=== PATIENT | male | born 1960 | race Caucasian/White ===

== ENCOUNTER 2016-07-27 16:07 | Emergency (ER) | payer MEDICAID ==
[~2016-07-27] VITALS: Ht 167.6 cm; Wt 116.6 kg
--- NOTE | 2016-07-27 16:20 | NUR ---
AAOX3, AMBULATES TO ER BED 02 WITH STEADY GAIT C/O R TESTICULAR PAIN AND SWELLING SINCE THIS MORNING. RESP IS EVEN AND UNLABORED WITH NAD NOTED. SKIN IS WARM AND DRY. AWAITING MD FOR EVAL.
[2016-07-27 16:39] LABS: BASOPHILS # (AUTO) 0.1 /CMM (0.0-0.2); BASOPHILS % (AUTO) 0.7 % (0.0-2.0); EOSINOPHILS # (AUTO) 0.1 /CMM (0.0-0.7); EOSINOPHILS % (AUTO) 0.7 % (0.0-6.0); HEMATOCRIT 46 % (39-51); HEMOGLOBIN 15.7 g/dL (13.5-17.5); LYMPHOCYTES # (AUTO) 3.7 /CMM (0.8-4.8); LYMPHOCYTES % (AUTO) 23.5 % (20.0-44.0); MEAN CORPUSCULAR HEMOGLOBIN 31 PG (26.0-33.0); MEAN CORPUSCULAR HGB CONC 34 g/dl (31.0-36.0); MEAN CORPUSCULAR VOLUME 90 fL (80-96); MONOCYTES # (AUTO) 1.7 /CMM (0.1-1.30); MONOCYTES % (AUTO) 10.9 % (2.0-12.0); NEUTROPHILS # (AUTO) 10.1 /CMM (1.8-8.9); NEUTROPHILS % (AUTO) 64.2 % (43.0-81.0); PLATELET COUNT (AUTO) 337 /CMM (150-450); RDW COEFFICIENT OF VARIATION 13.5 (11.5-15.0); RED BLOOD CELL COUNT(AUTO) 5.14 MIL/uL (4.5-6.0); WHITE BLOOD COUNT (AUTO) 15.7 K/uL (4.3-11.0)
[2016-07-27 16:46] LABS: CALCIUM, SERUM 8.4 mg/dL (8.5-10.1); CREATININE 1.1 mg/dL (0.6-1.3); POTASSIUM 3.8 mmol/L (3.5-5.1)
[2016-07-27 17:50] VITALS: BP 111/71
--- NOTE | 2016-07-27 17:50 | NUR ---
PT. VERBALIZED UNDERSTANDING OF AFTERCARE INSTRUCTIONS.Patient discharged to home in stable condition. Written and verbal after care instructions given. Patient verbalizes understanding of instruction.
== END 2016-07-27 17:51 | disposition home or self-care (01) ==
LOC: ER 16:17
DX: N45.1 Epididymitis (principal); F17.200 Nicotine dependence, unspecified, uncomplicated
CPT/HCPCS: 36415; 76870-TC; 80048-TC; 85025-TC; A4606; Z7610

== ENCOUNTER 2021-05-10 06:32 | Emergency (ER) | payer OTHER ==
[~2021-05-10] VITALS: Ht 167.6 cm; Wt 128.8 kg
--- NOTE | 2021-05-10 07:01 | NUR ---
BIBS FROM HOME. TO ER BED 10. AAOX4. NOT IN RESP DISTRESS. AMBULATORY. CAME IN FOR A WORSENING R LOWER ABDOMINAL PAIN WHICH STARTED YESTERDAY. PT REPORTS THE THE PAIN IS AGGREVATED BY COUGHING. URINE COLLECTED AND SENT TO LAB. AWAITING MD FOR STUART
--- NOTE | 2021-05-10 07:08 | NUR ---
URINE COLLECTED AND SENT TO LAB
--- NOTE | 2021-05-10 07:08 | NUR ---
BLOOD COLLECTED AND SENT TO LAB
[2021-05-10] MEDS ORDERED: ONDANSETRON HCL/PF 4 MG/2 ML VIAL ONE (07:09)
[2021-05-10] MEDS ORDERED: MORPHINE SULFATE INJ 4 MG/ML DISP.SYRIN ONE (07:10)
[2021-05-10] MEDS ORDERED: MORPHINE SULFATE INJ 2 MG/ML DISP.SYRIN IV ONE (07:30)
[2021-05-10] MEDS ORDERED: IV NS 0.9% 1,000 ML BAG IV ONE (07:30)
[2021-05-10] MEDS ORDERED: ONDANSETRON HCL/PF 4 MG/2 ML VIAL IVP ONE (07:30)
[2021-05-10 07:45] LABS: BASOPHILS # (AUTO) 0.1 K/uL (0.0-0.2); BASOPHILS % (AUTO) 1.2 % (0.0-2.0); EOSINOPHILS % (AUTO) 2.5 % (0.0-6.0); HEMATOCRIT 49 % (39-51); HEMOGLOBIN 16.4 g/dL (13.5-17.5); LYMPHOCYTES # (AUTO) 4.4 K/uL (0.8-4.8); LYMPHOCYTES % (AUTO) 37.1 % (20.0-44.0); MEAN CORPUSCULAR HGB CONC 34 g/dl (31.0-36.0); MEAN CORPUSCULAR VOLUME 90 fL (80-96); MONOCYTES # (AUTO) 1.1 K/uL (0.1-1.30); MONOCYTES % (AUTO) 9.1 % (2.0-12.0); NEUTROPHILS % (AUTO) 50.1 % (43.0-81.0); PLATELET COUNT (AUTO) 339 K/uL (150-450); RED BLOOD CELL COUNT(AUTO) 5.39 MIL/uL (4.5-6.0); WHITE BLOOD COUNT (AUTO) 11.9 K/uL (4.3-11.0)
[2021-05-10 08:35] LABS: BILIRUBIN,URINE NEGATIVE (NEGATIVE); COLOR,URINE YELLOW (YELLOW); LEUKOCYTE ESTERASE ,URINE NEGATIVE (NEGATIVE); NITRITE, URINE NEGATIVE (NEGATIVE); PH,URINE 7.5 (5.0-8.0); PROTEIN,URINE NEGATIVE (NEGATIVE); UGLUCOSE >=1000 mg/dL (NEGATIVE); UROBILINOGEN,URINE 0.2 EU/dL (0.2)
[2021-05-10 09:16] LABS: BACTERIA,URINE None seen /HPF (None Seen); SQUAMOUS EPITHELIAL CELL,UR None Seen /HPF (None Seen); WBC,URINE 0-2 /HPF (0-3)
[2021-05-10 09:43] LABS: BILIRUBIN,DIRECT 0.1 mg/dL (0.0-0.2); BILIRUBIN,TOTAL 0.3 mg/dL (0.2-1.0)
[2021-05-10 09:44] LABS: ALBUMIN 3.8 g/dL (3.4-5.0); CALCIUM, SERUM 9.3 mg/dL (8.5-10.1); POTASSIUM 4.3 mmol/L (3.5-5.1); TOTAL PROTEIN, SERUM 8.1 g/dL (6.4-8.2)
[2021-05-10 09:45] LABS: CREATININE 0.8 mg/dL (0.6-1.3)
--- NOTE | 2021-05-10 10:27 | NUR ---
IV removed. Catheter intact and site benign. Pressure and 4x4 applied to site. No bleeding noted.Patient discharged to home in stable condition. Written and verbal after care instructions given. Patient verbalizes understanding of instruction.
[2021-05-10 10:29] VITALS: BP 128/74
[2021-05-19] MEDS ORDERED: LEVO750T46 PO (08:35)
[2021-05-19] MEDS ORDERED: IBUP-1955 PO (08:35)
== END 2021-05-10 10:29 | disposition home or self-care (01) ==
LOC: ER 06:32
DX: R10.33 Periumbilical pain (principal); R10.30 Lower abdominal pain, unspecified; F17.200 Nicotine dependence, unspecified, uncomplicated
CPT/HCPCS: 36415; 74176; 80048; 80076; 81001; 83690; 85025; 87086; 96361; 96374; 96375; 99284; J2270; J2405; J7030

== ENCOUNTER 2021-05-14 18:18 | Inpatient (IN) | payer OTHER ==
[~2021-05-14] VITALS: Ht 167.6 cm; Wt 130.6 kg
--- NOTE | 2021-05-14 18:34 | NUR ---
CALLED IN TRIAGE. NO ANSWER
--- NOTE | 2021-05-14 18:38 | NUR ---
SENT TO ER BED 11. BIBSELF C/O ABDOMINAL PAIN x 4 DAYS.
--- NOTE | 2021-05-14 19:12 | NUR ---
IV ESTABLISHED L AC 20G. LABS DRAWN AND COLLECTED. CONVERTED TO SALINE LOCK
--- NOTE | 2021-05-14 19:12 | NUR ---
URINE COLLECTED AND SENT
[2021-05-14 19:49] LABS: BASOPHILS # (AUTO) 0.1 K/uL (0.0-0.2); EOSINOPHILS % (AUTO) 1.7 % (0.0-6.0); HEMATOCRIT 45 % (39-51); HEMOGLOBIN 15.4 g/dL (13.5-17.5); LYMPHOCYTES # (AUTO) 4.5 K/uL (0.8-4.8); LYMPHOCYTES % (AUTO) 38.5 % (20.0-44.0); MEAN CORPUSCULAR HGB CONC 34 g/dl (31.0-36.0); MEAN CORPUSCULAR VOLUME 91 fL (80-96); MONOCYTES # (AUTO) 1.1 K/uL (0.1-1.30); MONOCYTES % (AUTO) 9.1 % (2.0-12.0); NEUTROPHILS # (AUTO) 5.8 K/uL (1.8-8.9); NEUTROPHILS % (AUTO) 49.7 % (43.0-81.0); PLATELET COUNT (AUTO) 306 K/uL (150-450); RED BLOOD CELL COUNT(AUTO) 4.96 MIL/uL (4.5-6.0); WHITE BLOOD COUNT (AUTO) 11.7 K/uL (4.3-11.0)
[2021-05-14 19:50] LABS: CALCIUM, SERUM 8.6 mg/dL (8.5-10.1); CREATININE 0.9 mg/dL (0.6-1.3)
[2021-05-14 20:03] LABS: BILIRUBIN,URINE NEGATIVE (NEGATIVE); COLOR,URINE YELLOW (YELLOW); LEUKOCYTE ESTERASE ,URINE NEGATIVE (NEGATIVE); NITRITE, URINE NEGATIVE (NEGATIVE); PROTEIN,URINE NEGATIVE (NEGATIVE); UGLUCOSE >=1000 mg/dL (NEGATIVE); UROBILINOGEN,URINE 0.2 EU/dL (0.2)
[2021-05-14 20:06] LABS: ALBUMIN 3.5 g/dL (3.4-5.0); BILIRUBIN,DIRECT 0.1 mg/dL (0.0-0.2); BILIRUBIN,TOTAL 0.3 mg/dL (0.2-1.0); TOTAL PROTEIN, SERUM 7.6 g/dL (6.4-8.2)
[2021-05-14 20:11] LABS: BACTERIA,URINE None seen /HPF (None Seen); SQUAMOUS EPITHELIAL CELL,UR Few /HPF (None Seen); WBC,URINE 0-2 /HPF (0-3)
[2021-05-14] MEDS ORDERED: IOHEXOL-300 100 ML VIAL IV ONE (20:24)
[2021-05-14] MEDS ORDERED: IV NS 0.9% 250 ML IV ONE (20:25)
[2021-05-14] MEDS ORDERED: MORPHINE SULFATE INJ 2 MG/ML DISP.SYRIN IV ONE (20:30)
[2021-05-14] MEDS ORDERED: ONDANSETRON HCL/PF 4 MG/2 ML VIAL IVP ONE (20:30)
[2021-05-14] MEDS: IV NS 0.9% 500 ML BAG IV ONE ×2 (20:49→21:09)
[2021-05-14] MEDS: PIPERACILLIN /TAZOBACTAM 3.375 G in IV D5W 50 ML IV ONE ×2 (20:49→21:09)
[2021-05-14] MEDS ORDERED: PIPERACILLIN /TAZOBACTAM 3.375 G VIAL IV ONE (20:59)
--- NOTE | 2021-05-14 22:11 | NUR ---
COVID TO LAB
[2021-05-14] MEDS ORDERED: ONDANSETRON HCL/PF 4 MG/2 ML VIAL IVP PRN (23:00)
[2021-05-14] MEDS ORDERED: MORPHINE SULFATE INJ 2 MG/ML DISP.SYRIN IV PRN (23:00)
[2021-05-15] MEDS: ENOXAPARIN SODIUM 40 MG/0.4 ML DISP.SYRIN SQ SCH ×2 (01:10→21:34)
--- NOTE | 2021-05-15 01:47 | NUR ---
PATIENT TRANSFERRED, NO ACUTE DISTRESS NOTED.
--- NOTE | 2021-05-15 01:50 | NUR ---
RN NOTES: -PATIENT ADMITTED FROM ER, CAME IN BY HIMSELF FROM HOME WITH C/O ACUTE ABDOMINAL PAIN X 4-5 DAYS, CT ABDOMEN WITH PELVIS RESULT: FATTY STRANDING BILATERAL STRANGULATED INGUINAL HERNIA, PATIENT DENIES ANY MEDICAL AND PAST SURGICAL HISTORY, HE DOES NOT TAKE ANY MAINTENANCE DRUGS, HE IS A SMOKE 1/2 PACK A DAY OR MORE(FOR 30 YEARS),HE LOOKS OBESE, IV CANNULA LAC G#20, LACTIC ACID 3.1 THEN DOWN 1.9 HE RECIEVED IVF OF NS IN ER, FOLLOWED WITH ZOSYN 3.375 IV/ATB AND OMEPRAZOLE, HE REFUSED MORPHINE AND ONDANSETRON, HE WAS REFERRED INITIALLY TO DR. VALLES IN ER, HE SAID NO NEED SURGERY. -- WHILE PATIENT WAS ADMITTED IN [address] CHARGE NURSE RECEIVED A PHONE CALL FROM FOR SURGERY TOMORROW AT 11OO AM : REPAIR OF INCARCERATED UMBILICAL HERNIA. --ARRIVED AT [facility] AT 0145, ACCOMPANIED BY 1 ER STAFF, AMBULATORY ABLE TO TRANSFER FROM [facility] TO BED WITHOUT ANY DIFFICULTY, STILL WITH ON AND OFF PAIN, ORIENTED TO UNIT AND STAFF, BODY ASSESSMENT DONE, SKIN IS INTACT, NO EDEMA, NO SKIN ISSUES, NO OLD SURGICAL SCAR.NON LABORED BREATHING, SPO2-96% ON ROOM AIR, NO SOB OR ANY SIGN OF RESPIRATORY DISTRESS, NO NAUSEA AND VOMITING NOTED,ABDOMEN IS ENLARGE. -FALL, SAFETY AND ASPIRATION PRECAUTION OBSERVED,NPO. -CHARGE NURSE ADDED LAB TEST ORDER BY DR. VALLES. -TO OBTAIN CONSENT. Addendum: 05/15/21 at 2880 by ANDREW FISCHER RN CORRECTION TO PREVIOUS CHARTING: PATIENT DID NOT RECEIVED ONDANSETRON IN ER, HE REFUSED. Addendum: 05/15/21 at 0441 by ANDREW FISCHER RN ADDED NOTES: NO OMEPRAZOLE GIVEN IN ER, WRONG ENTRY OF CHARTING.
[2021-05-15 02:00] VITALS: BP 128/57
--- NOTE | 2021-05-15 02:25 | NUR ---
RN NOTES; -- PATIENT IS SCHEDULE FOR SURGERY REPAIR OF INCARCERATED HERNIA TOMORROW AT 11AM BY DR. VALLES,VERIFIED WITH DR. ALEJANDRA CHANEY, LOVENOX DOSE WITH BE HOLD FOR TONIGHT DOSE.
[2021-05-15] MEDS: IV NS 0.9% 1,000 ML IV PRN ×2 (03:17→20:03)
--- NOTE | 2021-05-15 03:17 | NUR ---
RN NOTES: UNABLE TO SCAN IV FLUID, MANUALLY ENTERED. --IVF OF NS AT 100CC/HR STARTED FOR IV HYDRATION KEPT NPO.
--- NOTE | 2021-05-15 03:52 | NUR ---
RN NOTES: -PATIENT PREFER TO SIGN CONSENT IN THE MORNING HE DONT WANT TO BE DISTURBED ANYMORE HE WANTS TO SLEEP AND REST.
[2021-05-15] MEDS ORDERED: PIPERACILLIN /TAZOBACTAM 3.375 G in IV D5W 50 ML IV SCH ×4 (05:00)
[2021-05-15] MEDS ORDERED: PIPERACILLIN /TAZOBACTAM 3.375 G VIAL IV ONE (05:36)
--- NOTE | 2021-05-15 05:42 | NUR ---
RN NOTES: 0530AM DOSE OF ZOSYN 3.375 G TAKEN BY CHARGE NURSE IN [facility]MNICEL.
--- NOTE | 2021-05-15 06:04 | NUR ---
RN NOTES: 5445 RN WAS ABOUT TO GIVE ZOSYN HE WANTS TO WALK AROUND AND HE ASKED PERMISSION TO GO DOWN TO GET SOMETHING FROM HIS CAR, ASKED PERMISSION FROM CHARGE NURSE, WENT DOWN TO CAR PARK, ACCOMPANIED BY IVAN.
[2021-05-15 06:38] LABS: BASOPHILS # (AUTO) 0.1 K/uL (0.0-0.2); BASOPHILS % (AUTO) 0.8 % (0.0-2.0); EOSINOPHILS % (AUTO) 1.7 % (0.0-6.0); HEMATOCRIT 47 % (39-51); HEMOGLOBIN 15.9 g/dL (13.5-17.5); LYMPHOCYTES # (AUTO) 3.8 K/uL (0.8-4.8); LYMPHOCYTES % (AUTO) 35.5 % (20.0-44.0); MEAN CORPUSCULAR HGB CONC 34 g/dl (31.0-36.0); MEAN CORPUSCULAR VOLUME 91 fL (80-96); MONOCYTES # (AUTO) 0.8 K/uL (0.1-1.30); MONOCYTES % (AUTO) 7.6 % (2.0-12.0); NEUTROPHILS # (AUTO) 5.9 K/uL (1.8-8.9); NEUTROPHILS % (AUTO) 54.4 % (43.0-81.0); PLATELET COUNT (AUTO) 299 K/uL (150-450); RED BLOOD CELL COUNT(AUTO) 5.16 MIL/uL (4.5-6.0); WHITE BLOOD COUNT (AUTO) 10.8 K/uL (4.3-11.0)
--- NOTE | 2021-05-15 06:43 | NUR ---
RN NOTES: -RECEIVED CALL FROM PHARMACY, SPOKE WITH RHODA,SUGGEST TO PUT ANOTHER LINE WHEN GIVING NEXT DOSE OF ZOSYN.WILL ENDORSED TO NEXT SHIFT TO PUT A NEW LINE FOR NEXT DOSE. -PATIENT IS AWARE REGARDING HIS PROCEDURE THIS MORNING AT 1100, ON NPO, SCHEDULE FOR REPAIR INCARCERATED UMBILICAL HERNIA, CONSENT: FOR PROCEDURE, ANESTHESIA AND BLOOD TRANSFUSION TAKEN, EXPLAINED TO HIM REGARDING COVID PROTOCOL, HE UNDERSTAND AND HE SIGNED.
[2021-05-15 07:03] LABS: THYROID STIMULATING HORMONE 1.92 uIU/mL (0.358-3.74)
--- NOTE | 2021-05-15 07:16 | NUR ---
RN NOTES: TAKING A SHORT NAP IN BETWEEN, ENDORSED TO NEXT SHIFT HE WANTS HIS TO BE AROUND ON HIS OPERATION TIME, STABLE, NO PAIN OR DISCOMFORT, ENDORSED FOR CONTINUITY OF CARE.
--- NOTE | 2021-05-15 07:45 | NUR ---
RN NOTES CONSENT FORMS SIGNED AND IN THE CHART.
[2021-05-15 08:01] LABS: CALCIUM, SERUM 8.6 mg/dL (8.5-10.1); CREATININE 0.8 mg/dL (0.6-1.3); MAGNESIUM 2.2 mg/dL (1.8-2.4); PHOSPHORUS 3.4 mg/dL (2.5-4.9); POTASSIUM 4.1 mmol/L (3.5-5.1)
[2021-05-15] MEDS: PANTOPRAZOLE 40 MG VIAL IV SCH (08:10)
[2021-05-15 08:36] VITALS: BP 121/49
[2021-05-15] MEDS ORDERED: DEXTROSE 50%-WATER 50 ML DISP.SYRIN IV PRN (09:00)
[2021-05-15] MEDS: PIPERACILLIN /TAZOBACTAM 3.375 G in IV D5W 100 ML IV SCH ×2 (11:31→20:02)
--- NOTE | 2021-05-15 11:56 | NUR ---
RN NOTES AT BEDSIDE TO SEE PATIENT. CONFIRMED W/ OR THAT PATIENT IS SCHEDULED TO HAVE SURGERY TODAY AT 1200.
[2021-05-15] MEDS: BLOOD SUGAR DIAGNOSTIC 1 EACH STRIP VI SCH ×3 (12:00→21:40)
--- NOTE | 2021-05-15 12:12 | NUR ---
RN NOTES PATIENT SEEN BY DR. VALLES. PICKED UP VIA [facility] FOR SURGERY, ACCOMPANIED BY 2 OR NURSES.
--- NOTE | 2021-05-15 12:39 | NUR ---
RN NOTES PATIENT BROUGHT BACK TO UNIT BY OR NURSE D/T ANESTHESIOLOGIST SCHEDULE CONFLICT; WILL COIL ASSEMBLER PATIENT AGAIN WHEN READY.
--- NOTE | 2021-05-15 14:10 | NUR ---
RN NOTES PATIENT PICKED UP FOR SURGERY VIA GURNEY, ACCOMPANIED BY 2 OR NURSES.
[2021-05-15] MEDS ORDERED: BUPIVACAINE 0.5 % PF 150 MG/30 ML VIAL ONE (14:32)
[2021-05-15] MEDS ORDERED: LIDOCAINE MPF 1%-EPI 1:200,000 30 ML VIAL IJ ONE (14:32)
[2021-05-15] MEDS ORDERED: FENTANYL PF 250MCG/5ML AMPUL ONE (14:40)
[2021-05-15] MEDS ORDERED: HYDROMORPHONE INJ 2 MG/ML DISP.SYRIN ONE (14:40)
[2021-05-15] MEDS ORDERED: ROCURONIUM BROMIDE 50 MG/5 ML ONE (14:41)
[2021-05-15] MEDS ORDERED: MIDAZOLAM HCL 2 MG/2ML VIAL ONE (14:41)
[2021-05-15] MEDS ORDERED: FAMOTIDINE/PF INJ 20 MG/2 ML VIAL IV ONE (14:41)
[2021-05-15] MEDS ORDERED: ANESTHESIA TRAY IN PYXIS 1 EA TRAY MC ONE (14:45)
[2021-05-15] MEDS ORDERED: BACITRACIN ZINC OINT PACKET 1 EA PACKET TP ONE (15:55)
--- NOTE | 2021-05-15 16:15 | NUR ---
RN NOTES , KARIS, AT SURGERY WAITING AREA. SPOKE W/ SATISH FROM SURGERY, WILL SEND DR. VALLES TO SEE .
[2021-05-15] MEDS ORDERED: ALBUTEROL FS 2.5 MG/3 ML VIAL.NEB ONE ×2 (16:19→16:59)
[2021-05-15] MEDS ORDERED: FUROSEMIDE 20 MG/2 ML VIAL ONE (16:41)
[2021-05-15] MEDS ORDERED: DEXAMETHASONE SOD PHOSPHATE 4 MG/ML VIAL ONE (17:03)
[2021-05-15] MEDS: ACETAMINOPHEN 325 MG TABLET PO SCH (18:00)
[2021-05-15] MEDS: GABAPENTIN 300 MG CAPSULE PO SCH (18:00)
[2021-05-15] MEDS: IBUPROFEN 400 MG TABLET PO SCH (18:00)
--- NOTE | 2021-05-15 18:31 | NUR ---
RN NOTES PATIENT UNABLE TO SWALLOW MEDS AT THIS TIME; STATUS POST RECOVERY FROM SURGERY.
--- NOTE | 2021-05-15 18:59 | NUR ---
RN NOTES PATIENT RESPONDS TO VERBAL AND TACTILE STIMULI. OPENS EYES. VERBALIZED THAT HE IS SLEEPY AT THIS TIME. CURRENTLY ON TELE FOR OBSERVATION, READING OF SINUS TACH, HR IN THE LOW 100'S, NO CARDIAC DISTRESS. SAFETY MEASURES MAINTAINED. WILL ENDORSE TO SUPERVISOR HAND SILVERING RN FOR TABITHA.
--- NOTE | 2021-05-15 19:30 | NUR ---
RN OPENING NOTE PATIENT IN BED, A/O X 3 AT THIS TIME. PATIENT OBSERVED TO BE REALLY SLEEPY. AWAKENS WITH VERBAL AND TOUCH STIMULI. PATIENT S/P HERNIA SX WITH DR. VALLES THIS AFTERNOON. NO REPORTS OF PAIN AT THIS TIME. PATIENT ON 5LPM, TOLERATING WELL VIA NC. WILL WEAN PATIENT DOWN HE TOLERATES IT. SAFETY MEASURES IN PLACE: BED LOCKED AND IN LOWEST POSITION, CALL LIGHT WITHIN REACH, SIDE RAILS UP. WILL MONITOR PATIENT CLOSELY. Addendum: 05/15/21 at 2225 by LISA MALCOLM RN PATIENT ON TELE FOR OBSERVATION, ST 105 BPM
[2021-05-15 20:00] VITALS: BP 129/72
[2021-05-15 21:17] VITALS: BP 126/77
[2021-05-15] MEDS: *INSULIN REGULAR(HUMULIN R)HUM 100 UNIT/ML VIAL SQ PRN (21:46)
--- NOTE | 2021-05-15 22:00 | NUR ---
BS 256 6 UNITS GIVEN FOR COVERAGE. SNACK PROVIDED. WILL MONITOR PATIENT FOR HYPO/HYPERGLYCEMIA
[2021-05-16] MEDS: PIPERACILLIN /TAZOBACTAM 3.375 G in IV D5W 100 ML IV SCH ×3 (04:30→20:22)
[2021-05-16] MEDS: ACETAMINOPHEN 325 MG TABLET PO SCH ×3 (04:30→21:52)
[2021-05-16] MEDS: GABAPENTIN 300 MG CAPSULE PO SCH ×3 (04:30→21:52)
[2021-05-16] MEDS: IBUPROFEN 400 MG TABLET PO SCH ×3 (04:30→21:52)
[2021-05-16] MEDS: INSULIN REGULAR, HUMAN 100 UNIT/ML 3 ML VIAL SQ PRN ×3 (06:23→16:48)
[2021-05-16] MEDS: BLOOD SUGAR DIAGNOSTIC 1 EACH STRIP VI SCH ×4 (06:31→22:08)
--- NOTE | 2021-05-16 06:48 | NUR ---
RN CLOSING NOTE PATIENT AWAKE, A/O X 4. PATIENT COMPLAINS OF L GROIN SHARP AND ACHING PAIN RADIATING UP THE BODY, MORPHINE 4 MG GIVEN FOR 10/10 PAIN. TELE MONITOR ON 87 BPM SR, FOR OBSERVATION S/P HERNIA REPAIR. 5LPM VIA NC ON, SATURATING 97 BPM. PATIENT OBSERVED TO HAVE COUGH, NON PRODUCTIVE. NO DYSNEA REPORTED BY PATIENT. DRESSING PLACED ON TOP OF ABD SX SITE. SAFETY MEASURES IN PLACE: BED LOCKED AND IN LOWEST POSITION, CALL LIGHT WITHIN REACH, SIDE RAILS UP. ALL NEEDS MET AND ATTENDED. ALL ORDERS CARRIED OUT. WILL ENDORSE TO DAY SHIFT NURSE FOR TABITHA. Addendum: 05/16/21 at 0652 by LISA MALCOLM RN BS 351 15 UNITS GIVEN FOR COVERAGE
[2021-05-16 07:25] LABS: HEMATOCRIT 43 % (39-51); HEMOGLOBIN 14.4 g/dL (13.5-17.5); LYMPHOCYTES # (AUTO) 1.1 K/uL (0.8-4.8); MEAN CORPUSCULAR HGB CONC 33 g/dl (31.0-36.0); MEAN CORPUSCULAR VOLUME 91 fL (80-96); MONOCYTES # (AUTO) 0.9 K/uL (0.1-1.30); MONOCYTES % (AUTO) 2.4 % (2.0-12.0); NEUTROPHILS # (AUTO) 34.7 K/uL (1.8-8.9); NEUTROPHILS % (AUTO) 94.6 % (43.0-81.0); PLATELET COUNT (AUTO) 273 K/uL (150-450); RED BLOOD CELL COUNT(AUTO) 4.73 MIL/uL (4.5-6.0)
[2021-05-16 07:42] LABS: THYROID STIMULATING HORMONE 0.476 uIU/mL (0.358-3.74); URIC ACID 4.6 mg/dL (2.6-7.2)
[2021-05-16 07:57] LABS: WHITE BLOOD COUNT (AUTO) 36.7 K/uL (4.3-11.0)
[2021-05-16 08:00] VITALS: BP 109/50
[2021-05-16] MEDS ORDERED: METOPROLOL TARTRATE INJ 5 MG/5 ML AMPUL ONE (08:54)
[2021-05-16] MEDS ORDERED: CT SWABBABLE VALVE TRANS SET 1 EA INFUS.SET MC ONE (08:54)
[2021-05-16] MEDS ORDERED: IV NS 0.9% 250 ML IV ONE (08:54)
[2021-05-16] MEDS ORDERED: IOHEXOL-350 100 ML VIAL IV ONE (08:54)
[2021-05-16] MEDS ORDERED: NITROGLYCERIN 0.4 MG/TAB BOTTLE ONE (08:55)
[2021-05-16 09:23] LABS: BASOPHILS % (AUTO) 0.1 % (0.0-2.0); HEMATOCRIT 44 % (39-51); HEMOGLOBIN 14.5 g/dL (13.5-17.5); LYMPHOCYTES # (AUTO) 1.3 K/uL (0.8-4.8); LYMPHOCYTES % (AUTO) 3.5 % (20.0-44.0); MEAN CORPUSCULAR HGB CONC 33 g/dl (31.0-36.0); MEAN CORPUSCULAR VOLUME 91 fL (80-96); MONOCYTES # (AUTO) 1.1 K/uL (0.1-1.30); MONOCYTES % (AUTO) 2.9 % (2.0-12.0); NEUTROPHILS # (AUTO) 35.6 K/uL (1.8-8.9); NEUTROPHILS % (AUTO) 93.5 % (43.0-81.0); PLATELET COUNT (AUTO) 288 K/uL (150-450)
[2021-05-16 09:29] LABS: CALCIUM, SERUM 7.8 mg/dL (8.5-10.1); CREATININE 1.3 mg/dL (0.6-1.3); MAGNESIUM 1.9 mg/dL (1.8-2.4); POTASSIUM 4.7 mmol/L (3.5-5.1)
[2021-05-16 09:47] LABS: WHITE BLOOD COUNT (AUTO) 38.1 K/uL (4.3-11.0)
[2021-05-16] MEDS: PANTOPRAZOLE 40 MG VIAL IV SCH (10:20)
[2021-05-16 10:26] LABS: BAND % (MANUAL) 8 % (0.0-5.0); LYMPHOCYTES % (MANUAL) 6 % (16-48); METAMYELOCYTES % 1 % (0-0); MONOCYTES % (MANUAL) 6 % (0-11.0); MYELOCYTES % 1 % (0-0); NEUTROPHILS % (MANUAL) 78 (42-76)
[2021-05-16] MEDS ORDERED: VANCOMYCIN 1 GM in IV D5W 250 ML IV SCH (11:00)
[2021-05-16 16:00] VITALS: BP 115/68
--- NOTE | 2021-05-16 19:59 | NUR ---
MS/TELE/RN RECEIVED PATIENT SITTING AT EDGE OF BED AWAKE, ALERT, ORIENTED, COMFORTABLE, NO C/O PAIN, NO DISTRESS NOTED, CALL LIGHT IN REACH. WILL MONITOR.
[2021-05-16 20:00] VITALS: BP_SYST 121; BP_SYST 130; BP_DIAS 47; BP_DIAS 62
[2021-05-16] MEDS: ENOXAPARIN SODIUM 40 MG/0.4 ML DISP.SYRIN SQ SCH (21:53)
[2021-05-16] MEDS: *INSULIN REGULAR(HUMULIN R)HUM 100 UNIT/ML VIAL SQ PRN (21:54)
[2021-05-17] VITALS: BP 112/61
--- NOTE | 2021-05-17 02:00 | NUR ---
MS/TELE/RN PATIENT IS SLEEPING AT THIS TIME, APPEAR COMFORTABLE, NO SIGNS OF DISTRESS NOTED, CALL LIGHT IN REACH, WILL CONTINUE TO MONITOR.
[2021-05-17] MEDS: PIPERACILLIN /TAZOBACTAM 3.375 G in IV D5W 100 ML IV SCH ×4 (04:05→21:58)
[2021-05-17] MEDS: GABAPENTIN 300 MG CAPSULE PO SCH ×3 (05:59→22:00)
[2021-05-17] MEDS: IBUPROFEN 400 MG TABLET PO SCH ×3 (06:00→22:00)
[2021-05-17] MEDS: ACETAMINOPHEN 325 MG TABLET PO SCH ×3 (06:00→22:00)
[2021-05-17] MEDS: INSULIN REGULAR, HUMAN 100 UNIT/ML 3 ML VIAL SQ PRN ×3 (06:12→18:26)
[2021-05-17] MEDS: BLOOD SUGAR DIAGNOSTIC 1 EACH STRIP VI SCH ×4 (06:13→22:10)
[2021-05-17 06:36] LABS: BASOPHILS % (AUTO) 0.1 % (0.0-2.0); HEMATOCRIT 41 % (39-51); HEMOGLOBIN 13.4 g/dL (13.5-17.5); LYMPHOCYTES # (AUTO) 3.1 K/uL (0.8-4.8); MEAN CORPUSCULAR HGB CONC 33 g/dl (31.0-36.0); MEAN CORPUSCULAR VOLUME 91 fL (80-96); MONOCYTES # (AUTO) 1.7 K/uL (0.1-1.30); MONOCYTES % (AUTO) 6.1 % (2.0-12.0); NEUTROPHILS # (AUTO) 23.6 K/uL (1.8-8.9); NEUTROPHILS % (AUTO) 82.8 % (43.0-81.0); PLATELET COUNT (AUTO) 269 K/uL (150-450); WHITE BLOOD COUNT (AUTO) 28.6 K/uL (4.3-11.0)
--- NOTE | 2021-05-17 06:42 | NUR ---
MS/TELE/RN PATIENT IS AWAKE, ALERT, ORIENTED, COMFORTABLE, NO C/O PAIN, NO DISTRESS NOTED, ALL NEEDS ATTENDED AT THIS TIME, WILL CONTINUE TO MONITOR.
[2021-05-17 07:15] LABS: CREATININE 1.1 mg/dL (0.6-1.3); MAGNESIUM 2.5 mg/dL (1.8-2.4); PHOSPHORUS 2.5 mg/dL (2.5-4.9); POTASSIUM 4.5 mmol/L (3.5-5.1)
[2021-05-17 08:39] VITALS: BP 108/46
[2021-05-17] MEDS: PANTOPRAZOLE 40 MG VIAL IV SCH (09:46)
[2021-05-17] MEDS ORDERED: GUAIFENESIN/D-METHORPHAN HB 5 ML UDC PO PRN (13:30)
[2021-05-17 16:13] VITALS: BP 127/54
--- NOTE | 2021-05-17 18:00 | NUR ---
received pt. in am alert and oriented x4.system integration engineer light freq.at end of shift requests iv be removed due to pain.instructed will need to restart.amb. in story and requests freq. allowance to smoke.
[2021-05-17 20:00] VITALS: BP 97/63
--- NOTE | 2021-05-17 21:19 | NUR ---
MS/TELE/RN ON INITIAL ASSESSMENT, PATIENT WAS AWAKE, ALERT, ORIENTED, COMFORTABLE, NO C/O PAIN, NO DISTRESS NOTED. NO IV ACCESS AT THIS TIME, HENCE UNABLE TO ADMINISTER THE ZOSYN. POWER SUPPLY ENGINEER QUIN ATTEMPTED TO INSERT NEW IV, BUT UNSUCCESSFUL, SHE WILL TRY AGAIN LATER.
[2021-05-17] MEDS: ENOXAPARIN SODIUM 40 MG/0.4 ML DISP.SYRIN SQ SCH (22:02)
[2021-05-17] MEDS: *INSULIN REGULAR(HUMULIN R)HUM 100 UNIT/ML VIAL SQ PRN (22:38)
--- NOTE | 2021-05-18 | NUR ---
MS/TELE/RN PATIENT IS SLEEPING AT THIS TIME, APPEAR COMFORTABLE, NO SIGNS OF DISTRESS NOTED, CALL LIGHT IN REACH. PATIENT HAS REQUESTED NOT TO BE BOTHERED WHILE ASLEEP.
[2021-05-18] MEDS: IV NS 0.9% 1,000 ML IV PRN (04:18)
[2021-05-18] MEDS: PIPERACILLIN /TAZOBACTAM 3.375 G in IV D5W 100 ML IV SCH ×3 (05:04→20:00)
[2021-05-18] MEDS: GABAPENTIN 300 MG CAPSULE PO SCH ×3 (06:50→21:50)
[2021-05-18] MEDS: ACETAMINOPHEN 325 MG TABLET PO SCH ×3 (06:50→21:49)
[2021-05-18] MEDS: IBUPROFEN 400 MG TABLET PO SCH ×3 (06:50→21:49)
[2021-05-18] MEDS: INSULIN REGULAR, HUMAN 100 UNIT/ML 3 ML VIAL SQ PRN ×3 (06:54→18:04)
--- NOTE | 2021-05-18 07:04 | NUR ---
MS/TELE/RN PATIENT IS AWAKE, ALERT, ORIENTED, COMFORTABLE, NO DISTRESS NOTED. PATIENT IS DOWNSTAIRS ACCOMPANIED BY IVAN BERMAN , TO SMOKE. ALL NEEDS ATTENDED AT THIS TIME, WILL CONTINUE TO [place].
[2021-05-18] MEDS: BLOOD SUGAR DIAGNOSTIC 1 EACH STRIP VI SCH ×4 (07:06→22:05)
[2021-05-18 08:00] VITALS: BP 139/71
[2021-05-18 09:43] LABS: CREATININE 0.8 mg/dL (0.6-1.3); POTASSIUM 4.1 mmol/L (3.5-5.1)
[2021-05-18 09:53] LABS: BASOPHILS # (AUTO) 0.1 K/uL (0.0-0.2); BASOPHILS % (AUTO) 0.6 % (0.0-2.0); EOSINOPHILS % (AUTO) 1.8 % (0.0-6.0); HEMATOCRIT 43 % (39-51); LYMPHOCYTES # (AUTO) 5.8 K/uL (0.8-4.8); MEAN CORPUSCULAR HGB CONC 33 g/dl (31.0-36.0); MEAN CORPUSCULAR VOLUME 91 fL (80-96); MONOCYTES # (AUTO) 1.4 K/uL (0.1-1.30); MONOCYTES % (AUTO) 8.2 % (2.0-12.0); NEUTROPHILS # (AUTO) 9.1 K/uL (1.8-8.9); NEUTROPHILS % (AUTO) 54.4 % (43.0-81.0); PLATELET COUNT (AUTO) 281 K/uL (150-450); RED BLOOD CELL COUNT(AUTO) 4.66 MIL/uL (4.5-6.0); WHITE BLOOD COUNT (AUTO) 16.7 K/uL (4.3-11.0)
[2021-05-18] MEDS: PANTOPRAZOLE 40 MG VIAL IV SCH (10:15)
[2021-05-18 16:00] VITALS: BP 150/61
--- NOTE | 2021-05-18 18:00 | NUR ---
FREQ.DISCONNECTS IV WITH LONG ZOSYN INFUSION,GOING DOWN TO SMOKE.EASILY FRUSTATED AND AGITATED.GIRLFRIEND IN TO VISIT OFTEN.
[2021-05-18 20:00] VITALS: BP 152/67
--- NOTE | 2021-05-18 21:00 | NUR ---
MS/TELE/RN IV IS LEAKING, PATIENT REFUSED IV INSERTION, UNABLE TO GIVE ZOSYN IV. EXPLAINED TO PATIENT THAT HE NEEDS THE ANTIBIOTIC, PATIENT VERBALIZED UNDERSTANDING BUT STILL REFUSED. WILL NOTIFY .
--- NOTE | 2021-05-18 21:31 | NUR ---
MS/TELE/RN IV WAS LEAKING, IV REMOVED. PATIENT REFUSED IV INSERTION. UNABLE TO GIVE ZOSYN, EXPLAINED TO THE PATIENT THE IMPORTANCE OF ANTIBIOTIC, PATIENT VERBALIZED UNDERSTANDING BUT STILL REFUSED. NOTIFIED [facility]SE NP, OBTAINED ORDER FOR MIDLINE INSERTION, PATIENT IS AGREEABLE TO MIDLINE INSERTION. NURSING CONSTRUCTION MILLWRIGHT MATIAS NOTIFIED.
[2021-05-18] MEDS: ENOXAPARIN SODIUM 40 MG/0.4 ML DISP.SYRIN SQ SCH (21:48)
[2021-05-18] MEDS: *INSULIN REGULAR(HUMULIN R)HUM 100 UNIT/ML VIAL SQ PRN (22:00)
--- NOTE | 2021-05-18 23:16 | NUR ---
MS/TELE/RN PATIENT IS SLEEPING AT THIS TIME, APPEAR COMFORTABLE, NO SIGNS OF DISTRESS NOTED, CALL LIGHT IN REACH. PATIENT HAS REQUESTED NOT TO BE BOTHERED WHILE SLEEPING.
[2021-05-19] MEDS: PIPERACILLIN /TAZOBACTAM 3.375 G in IV D5W 100 ML IV SCH (01:02)
[2021-05-19] MEDS: GABAPENTIN 300 MG CAPSULE PO SCH (05:22)
[2021-05-19] MEDS: ACETAMINOPHEN 325 MG TABLET PO SCH (05:22)
[2021-05-19] MEDS: IBUPROFEN 400 MG TABLET PO SCH (05:23)
--- NOTE | 2021-05-19 06:09 | NUR ---
MS/TELE/RN PATIENT IS IN ROOM AWAKE, ALERT, ORIENTED, COMFORTABLE, NO DISTRESS NOTED, ALL NEEDS ATTENDED AT THIS TIME, WILL CONTINUE TO MONITOR.
[2021-05-19 06:26] LABS: BASOPHILS # (AUTO) 0.1 K/uL (0.0-0.2); BASOPHILS % (AUTO) 0.9 % (0.0-2.0); EOSINOPHILS % (AUTO) 2.3 % (0.0-6.0); HEMATOCRIT 44 % (39-51); HEMOGLOBIN 14.8 g/dL (13.5-17.5); LYMPHOCYTES # (AUTO) 5.2 K/uL (0.8-4.8); LYMPHOCYTES % (AUTO) 39.5 % (20.0-44.0); MEAN CORPUSCULAR HGB CONC 34 g/dl (31.0-36.0); MEAN CORPUSCULAR VOLUME 90 fL (80-96); MONOCYTES # (AUTO) 0.8 K/uL (0.1-1.30); MONOCYTES % (AUTO) 5.8 % (2.0-12.0); NEUTROPHILS # (AUTO) 6.8 K/uL (1.8-8.9); NEUTROPHILS % (AUTO) 51.5 % (43.0-81.0); PLATELET COUNT (AUTO) 309 K/uL (150-450); RED BLOOD CELL COUNT(AUTO) 4.83 MIL/uL (4.5-6.0); WHITE BLOOD COUNT (AUTO) 13.2 K/uL (4.3-11.0)
[2021-05-19] MEDS: BLOOD SUGAR DIAGNOSTIC 1 EACH STRIP VI SCH (06:42)
[2021-05-19] MEDS: INSULIN REGULAR, HUMAN 100 UNIT/ML 3 ML VIAL SQ PRN (06:45)
[2021-05-19 06:46] LABS: CALCIUM, SERUM 8.2 mg/dL (8.5-10.1); CREATININE 0.8 mg/dL (0.6-1.3); MAGNESIUM 2.2 mg/dL (1.8-2.4); PHOSPHORUS 4.2 mg/dL (2.5-4.9); POTASSIUM 4.2 mmol/L (3.5-5.1)
[2021-05-19] MEDS ORDERED: PANTOPRAZOLE 40 MG TABLET.DR PO SCH (07:30)
--- NOTE | 2021-05-19 07:48 | NUR ---
MS RN OPENING NOTES Pt IS LAYING IN BED, ASLEEP. EASILY AROUSABLE. Pt IS A/Ox4. BREATHING IS EVEN AND UNLABORED ON ROOM AIR. NO COMPLAINTS OF PAIN AND NO SIGNS OF DISTRESS AT THIS TIME. Pt HAS A R UA MIDLINE AND IS PATENT AND INTACT. SAFETY MEASURES ARE IN PLACE: BED IS LOCKED AND IN LOWEST POSITION. SIDE RAILS UPx2. CALL LIGHT AND BED SIDE TABLE ARE WITHIN REACH. WILL CONTINUE TO MONITOR
[2021-05-19 08:00] VITALS: BP 141/57
[2021-05-19] MEDS ORDERED: IBUP-1955 PO (08:35)
[2021-05-19] MEDS ORDERED: LEVO750T46 PO (08:35)
--- NOTE | 2021-05-19 10:00 | NUR ---
RN NOTES Pt CONTINUOUSLY LEAVING THE FLOOR TO GO SMOKE. CHARGE NURSE AWAKE AND TRIED TO SPEAK TO Pt THAT ANDUJAR CANNOT LEAVE ALONE, HE HAS TO BE ACCOMPANIED BY NURSE.
--- NOTE | 2021-05-19 12:19 | NUR ---
RN NOTES-DISCHARGE Pt HAS BEEN DISCHARGE. DISCHARGE INSTRUCTIONS HAVE BEEN GIVEN. Pt IS MEDICALLY STABLE AT THIS TIME. A/Ox4 AND IS AMBULATORY. LEAVING VIA PRIVATE CAR WITH HIS .
== END 2021-05-19 12:25 | disposition home or self-care (01) | DRG 228 ==
LOC: ER 18:34 → TELE 05-15 00:58 → MED 05-15 02:29
PROVIDERS: ADMIT Nurse Practitioner Acute Care; ATTEND Internal Medicine
PROC: 0WQF0ZZ Repair Abdominal Wall, Open Approach (ICD-10-PCS; principal; 2021-05-15)
PROC: 0DBU0ZZ Excision of Omentum, Open Approach (ICD-10-PCS; 2021-05-15)
PROC: 05H933Z Insertion of Infusion Device into Right Brachial Vein, Percutaneous Approach (ICD-10-PCS; 2021-05-19)
DX: K42.0 Umbilical hernia with obstruction, without gangrene (principal); E87.2 Acidosis; E87.1 Hypo-osmolality and hyponatremia; E11.65 Type 2 diabetes mellitus with hyperglycemia; D72.829 Elevated white blood cell count, unspecified; E66.01 Morbid (severe) obesity due to excess calories; K57.30 Diverticulosis of large intestine without perforation or abscess without bleeding; Z20.822 Contact with and (suspected) exposure to COVID-19; K40.20 Bilateral inguinal hernia, without obstruction or gangrene, not specified as recurrent; I70.8 Atherosclerosis of other arteries; K76.0 Fatty (change of) liver, not elsewhere classified; Z68.42 Body mass index [BMI] 45.0-49.9, adult; E86.1 Hypovolemia; J98.11 Atelectasis; F17.200 Nicotine dependence, unspecified, uncomplicated
CPT/HCPCS: 36415; 71045-TC; 80048-TC; 80076-TC; 81001; 82962-TC; 83605-TC; 83690-TC; 83735-TC; 84100-TC; 84443-TC; 84550-TC; 85025-TC; 85610-TC; 85730-TC; 87040-TC; 87081-TC; 88305-TC; A6209; C9113; C9803; G0378; J0690; J1100; J1170; J1650; J1815; J1940; J2250; J2270; J2405; J2543; J2704; J2765; J3010; J3370; J3490; J7030; J7040; J7050; J7060; Q9967

== ENCOUNTER 2021-07-13 00:28 | Emergency (ER) | payer OTHER ==
[~2021-07-13] VITALS: Ht 167.6 cm; Wt 128.8 kg
[~2021-07-13 00:28] MED LIST: IBUP-1955 PO; LEVO750T46 PO
[2021-07-13 00:40] VITALS: BP 132/67
[2021-07-13] MEDS ORDERED: FLUORESCEIN SODIUM OPHTH 1 EA STRIP ONE (00:52)
[2021-07-13] MEDS ORDERED: FLUORESCEIN SODIUM OPHTH 1 EA STRIP OP ONE (01:00)
[2021-07-13] MEDS ORDERED: TETRACAINE HCL 0.5% OPHTALMIC 15 ML BOTTLE OP ONE (01:00)
[2021-07-13] MEDS ORDERED: CIPR2.5D14 RIGHTEYE (01:53)
== END 2021-07-13 02:03 | disposition home or self-care (01) ==
LOC: ER 00:30
DX: S05.01XA Injury of conjunctiva and corneal abrasion without foreign body, right eye, initial encounter (principal); F17.200 Nicotine dependence, unspecified, uncomplicated; Z79.899 Other long term (current) drug therapy; X58.XXXA Exposure to other specified factors, initial encounter; Y93.89 Activity, other specified; Y92.89 Other specified places as the place of occurrence of the external cause; Y99.8 Other external cause status
CPT/HCPCS: J7030